=== PATIENT | male | born 1970 | race Hispanic/Latino ===

== ENCOUNTER → 2020-03-26 09:48 | Outpatient (CLI) | payer OTHER, SELFPAY ==
[2020-03-26 11:32] LABS: Bacteria 0 SEEN /hpf (None Seen); Squamous Epithelial Cells - UA 0 SEEN /hpf (0-5); White Blood Cells 0 SEEN /hpf (0-5)
[2020-03-26 11:45] LABS: Color, Urine Yellow (Yellow); Glucose, Dipstick Normal (Normal); Ketone-Dipstick 5 mg/dl (Negative); Leukocyte Esterase-Dipstick 25 /ul (Negative); Nitrite-Dipstick Negative (Negative); Occult Blood-Urine 10 /ul (Negative); Protein-Dipstick 15 mg/dl (Negative); Urine Bilirubin Dipstick Negative (Negative); Urine Clarity Clear (Clear); Urine Urobilinogen 1 mg/dl (Normal)
[2020-03-26 12:05] LABS: Mucous, Urine 2+ /hpf (<or=2+); Red Blood Cells-Urine 0-5 SEEN /hpf (0-5)
[2020-03-27 20:26] LABS: PSA, Free 0.67 ng/mL; PSA, Free % 9.2 % (.); PSA, Total Ultrasensitive 7.3 ng/mL (0.0-4.0)
== END ==
PROVIDERS: PCP Family Medicine; Referring Provider Nurse Practitioner Adult Health; Visit Provider Nurse Practitioner Adult Health
DX: R97.20 Elevated prostate specific antigen [PSA] (principal); R31.29 Other microscopic hematuria
CPT/HCPCS: 36415; 81001; 84153; 84154

== ENCOUNTER → 2020-05-14 13:22 | Outpatient (CLI) | payer OTHER, SELFPAY ==
--- NOTE | 2020-05-14 13:24 | CT_ITS ---
STUDY: CT ABDOMEN AND PELVIS WITH CONTRAST REASON FOR EXAM: Male, 49 years old. PROSTATE CA-NEW DX, ELEVATED PSA RADIATION DOSAGE (If Supplied By Facility): CTDIvol = ( 12.92 ) mGy, DLP = ( 865.33 ) mGycm TECHNIQUE: Transaxial images were obtained from the dome of the diaphragm to the symphysis pubis without oral contrast. IV 100mL Isovue-300 was administered. Sagittal and coronal images were reconstructed. Individualized dose optimization techniques were used for this CT. COMPARISON: None. FINDINGS: The visualized lung bases are unremarkable. The visualized portions of the heart are within normal limits. There is decreased attenuation of the liver consistent with steatosis. Normal gallbladder and extrahepatic biliary system. Normal spleen. Normal pancreas. Normal bilateral adrenal glands. Normal right kidney. Normal left kidney. Normal visualized stomach. Normal small intestine. There are multiple colonic diverticula consistent with diverticulosis. The appendix is visualized and appears normal. There is scattered atherosclerotic calcification of the abdominal aorta, without a demonstrated aneurysm. Normal inferior vena cava. There is borderline retroperitoneal lymphadenopathy with enlarged nodes no greater than 10mm in the short axis diameter. Normal urinary bladder. The prostate measures 4.2 cm x 4.7 cm. There is a small umbilical hernia containing fat. There are mild degenerative changes of the visualized lumbar spine. CT/Abdomen/Pelvis W IV Cont ONLY IMPRESSION: Fatty infiltration of the liver. Sigmoid diverticulosis. No acute abnormality is seen. Electronically Signed: Morales Tobin, at 14:52 EST , Service support ,
[2020-05-14 13:46] LABS: CREATININE FINGERSTICK 0.8 mg/dL (0.70-1.30); EGFR FINGERSTICK > 60.0000 mL/min (>60)
== END ==
PROVIDERS: PCP Family Medicine; Referring Provider Urology; Visit Provider Urology
DX: C61 Malignant neoplasm of prostate (principal); K76.0 Fatty (change of) liver, not elsewhere classified; K57.30 Diverticulosis of large intestine without perforation or abscess without bleeding
CPT/HCPCS: 74177; Q9967

== ENCOUNTER → 2020-05-16 09:00 | Outpatient (CLI) | payer OTHER, SELFPAY ==
--- NOTE | 2020-05-16 09:02 | NM_ITS ---
CLINICAL: 49-year-old male with reported history of carcinoma of the prostate. WHOLE BODY 99m Tc MDP RADIONUCLIDE BONE SCINTIGRAPHY COMPARISON: CT of the abdomen-pelvis report 05/14/2020 FINDINGS: Following the intravenous administration of 25.0 mCi of 99m Tc MDP, whole body bone images reveal: 1. Increased radiopharmaceutical concentration appears evident in the acromioclavicular and sternoclavicular compartments of both shoulders, glenohumeral compartment of the left shoulder, subtly defined in the patellofemoral compartments of both knees. 2. The remaining skeletal structures are scintigraphically unremarkable with normal-appearing renal images and urinary bladder activity identified. Enhanced tracer distribution is defined in the bilateral maxilla, left zygoma most consistent with periostitis. NM/Bone Scan Whole Body IMPRESSION: 1. The increase in tracer distribution identified in the bilateral shoulders, right and left knees is most consistent with degenerative arthritis. 2. There is no definitive scintigraphic evidence of diffuse axial skeletal metastatic disease on the current examination. Electronically Signed: Antoine Patterson DO at 7:45 EST Tel , Service support ,
== END ==
PROVIDERS: PCP Family Medicine; Referring Provider Urology; Visit Provider Urology
DX: C61 Malignant neoplasm of prostate (principal)
CPT/HCPCS: 78306

== ENCOUNTER 2020-06-05 05:39 | Day surgery (SDC) | payer OTHER, SELFPAY ==
[2020-06-05] VITALS (10 sets, daily range): BP systolic 107–144; BP diastolic 62–91; PULSE 76–99; RESP 16–18; TEMP 36.2–37; O2SAT 93–100; BMI 30.4
[2020-06-05] MEDS: Lactated Ringers 1,000 ML 100 ML IV ×2 (07:07→07:10)
--- NOTE | 2020-06-05 07:23 | HP.PCM_ITS ---
Problem List (1) Prostate cancer Status: Acute History of Present Illness Date of Admission: 06/05/20 Chief Complaint: Prostate cancer The patient is a 49 year old male with a history of prostate cancer recently diagnosed. He had [place] seven disease. Negative work-up. PSA was 7.3. Healthy young male is elected undergo radical prostatectomy with bilateral nerve sparing. Past Medical History Allergies No Known Allergies Allergy (Verified 05/28/20 14:05) Home Medications: Ambulatory Orders Medication Instructions Recorded Acetaminophen [Tylenol Extra 500 - 1,000 mg PO Q6H PRN PRN 05/28/20 Strength] Ascorbic Acid [Vitamin C] 500 mg PO DAILY 05/28/20 Cholecalciferol (Vitamin D3) 2,000 unit PO DAILY 05/28/20 [Vitamin D3] Omeprazole 20 mg PO DAILY 05/28/20 Surgical History: no surgical history Smoking Status: Never smoker Review of Systems Constitutional: Denies: Chills, Fever, Weight Change HEENT: Denies: Head Aches, Sinus Congestion, Sinus Drainage Cardiovascular: Denies: Chest Pain, Palpitations Respiratory: Denies: Cough, Shortness of breath at rest, Sputum production Gastrointestinal: Denies: Abdominal Pain, Nausea, Vomiting Genitourinary: Denies: Dysuria Musculoskeletal: Denies: Joint Pain, Joint Tenderness Skin: Denies: Rash, Wounds Neurological: Denies: Numbness, Tingling, Focal weakness Psychiatric: Denies: Anxiety, Depression, Homicidal Ideations, Suicidal Ideations Hematologic/ Lymphatic: Denies: Easy Bruising, Easy Bleeding VTE Information - Inpt Only VTE Present on Admission: No - Physical Exam Vitals/I&O's: Vital Signs Temp Pulse Resp BP Pulse Ox 98.6 F 76 18 140/85 H 98 06/05/20 06:21 06/05/20 06:21 06/05/20 06:21 06/05/20 06:21 06/05/20 06:21 Oxygen Delivery Method Room Air Weight: 91 kg Body Mass Index (BMI) 30.4 General: Alert, Oriented x3, Cooperative HEENT: Atraumatic, PERRLA, EOMI, Normocephalic Neck: Supple, No JVD, Negative Carotid Bruits Lungs: Clear to auscultation, Normal air movement Cardiovascular: Regular rate, No murmurs Abdomen: Bowel Sounds Present, Soft, Non Tender Extremities: No edema, Capillary Refill Less than 3 Seconds Skin: No rashes, No breakdown Musculoskeletal: No Tenderness to Palpation of Joints or Extremities Neurological: Cranial nerves II-XII grossly intact Psych/Mental Status: Normal Affect, Appropriate Microbiology Past 72 Hours 06/03/20 16:15 Interface Orders SARS-CoV-2 Antigen (Rapid) - Final Laboratory Results 06/05/20 06:22: Blood Type Pending, Antibody Screen Pending Current Medications Cefazolin Sodium 2 gm/ Sodium (Chloride) 110 mls @ 150 mls/hr IV PREOP ONE Stop: 06/05/20 07:43 Lactated Ringer's () 1,000 mls @ 100 mls/hr IV .Q10H KAYE Last Admin: 06/05/20 07:07 Dose: 100 mls/hr Documented by: Lactated Ringer's () 1,000 mls @ 100 mls/hr IV .Q10H KAYE Last Admin: 06/05/20 07:10 Dose: 100 mls/hr Documented by: Assessment/Plan All Active Problems Prostate cancer (Acute) 49-year-old male with [place] seven cancer plan to proceed with bilateral nerve sparing and pelvic lymph node dissection.
--- NOTE | 2020-06-05 07:25 | DCINST_ITS ---
Discharge Diet: Light diet - advance as tolerated Discharge Activity: May Not Drive, May not drive while taking narcotic pain medications. Call your doctor if your incision/area has: Continuous Slow Oozing, Sudden Increased Bleeding, Increased Pain/ Swelling Call your doctor if you observe: Fever of 101 or Higher Suture Line Care: Avoid Pulling/Pushing, Avoid Pinching/Bending Instructions: Radical Prostatectomy Allergies/Adverse Reactions: Allergies No Known Allergies Allergy (Verified 05/28/20 14:05) Medications to take at Discharge Acetaminophen [Tylenol Extra Strength] 500 - 1,000 mg PO Q6H PRN PRN 05/28/20 Ascorbic Acid [Vitamin C] 500 mg PO DAILY 05/28/20 Cholecalciferol (Vitamin D3) [Vitamin D3] 2,000 unit PO DAILY 05/28/20 Omeprazole 20 mg PO DAILY 05/28/20 Ciprofloxacin [Cipro] 500 mg PO BID #14 tab 06/05/20 Docusate Sodium [Colace] 100 mg PO BID #20 cap 06/05/20 Hydrocodone/Acetaminophen [[place] 5-325 Tablet] 1 each PO Q4H PRN PRN 7 Days #14 tablet 06/05/20 Orders to be completed after discharge: Type & Screen - PAT ONLY Time Frame: 06/05/20, Facility: [facility], Location: Laboratory Primary Care Physician: Pablo Tejeda DO [Primary Care Provider] - Test Results: Test results from this visit will be discussed in further detail at your follow- up appointment, if applicable. Please Follow Up With: Jake Ortzi MD When: please call to make an appointment. Proposed Discharge Date: 06/06/20
[2020-06-05] MEDS: Cefazolin 2 GM in 0.9% Normal Saline 100 ML IV (07:28)
--- NOTE | 2020-06-05 07:30 | LYMN_PTH ---
PATIENT: CB LOPES LOC: [facility] [place] U[place][id number] AGE/SX: 49/M ROOM: RE06/05/[address]: Dr. Jake Ortiz MD : 1970 BED: DIS: 06/06/2020 SPEC #: [id number] RECD: 06/05/20 13:18 STATUS: JOSHUA RELorri #: [id number] NITA: 06/05/20 07:[address]: Jake Ortiz DEPT: SURGICAL PATHOLOGY RECD BY: Marianne Pablo ENTERED: 06/07/20 07:18 SP TYPE: LYMPH NODE OTHR DR: Dr. Pablo Tejeda, DO Tissues: A - LYMPH NODE BIOPSY B - LYMPH NODE BIOPSY C - Prostate, NOS D - Adipose tissue Procedures: Surgery Specimen Level IV Surgery Specimen Level V Surgery Specimen Level HEADER OPERATION: Lap robotic prostatectomy, lymph node dissection PRE-OP DIAGNOSIS: Prostate cancer TISSUE SUBMITTED: A - Right pelvic lymph node, B - Left pelvic lymph node, C - Prostate, D - Fat over prostate MICROSCOPIC DIAGNOSIS A. Right pelvic lymph node, biopsy: One lymph node, negative for metastatic carcinoma. B. Left pelvic lymph node, biopsy: One lymph node, negative for metastatic carcinoma. C. Prostate, radical prostatectomy: Prostatic adenocarcinoma. See cancer summary in the comment section. D. Fat over prostate: Fragments of mature adipose tissue, negative for carcinoma. SJ:vinicio 06/10/20 COMMENT PROSTATE CANCER (RADICAL) SUMMARY: Procedure: Radical Prostatectomy Prostate Size: Weight: 46.7 gm Size: 4.5 cm transversely, 3 cm anterior-posteriorly and 4 cm craniocaudally Histologic type: Acinar adenocarcinoma Histologic grade: Grade group 5 ([place] score 5+4=9) Tertiary pattern: Grade 3 Tumor Quantitation: Estimated % of prostate involved by tumor: <5% Tumor size: 1.3 x 0.7 cm (measured microscopically), right lobe - 0.2 cm in greatest dimension (measured microscopically), left lobe Extraprostatic Extension: Not identified Urinary Bladder Neck Invasion: Not identified Seminal Vesicle Invasion: Not identified Lymphvascular Invasion: Not identified Perineural Invasion: Not identified Margins: Uninvolved by invasive carcinoma. Treatment Effect: No known presurgical therapy. Regional Lymph Nodes: Number of lymph nodes involved: 0 Number of Lymph Nodes Examined: 2 Additional Pathologic Findings: High-grade prostatic intraepithelial neoplasia (HGPIN). - Focal chronic inflammation. - Benign glandular hyperplasia. Ancillary Studies: Not performed PATHOLOGIC STAGE: pT2 pN0 pMx The above summary is in compliance with [employer] [employer] (CAP) Cancer Protocols Checklist and [place] Joint Committee on Cancer (AJCC), Staging Manual, 8th Ed. C. The tumor involves both right and left lobes predominantly present in the right lobe and present in the apical portion of the right and left lobes. Please make reference to previous specimen ([id number]) done at [facility], prostate, right apex and prostate, left apex with diagnosis of adenocarcinoma. MICROSCOPIC DESCRIPTION Slides are reviewed. GROSS DESCRIPTION A - Received in fixative is one container labeled with the patient's name and designated right pelvic lymph node. The specimen consists of a piece of yellow adipose tissue measuring 3.5 x 2 x 1 cm. One possible lymph node is identified. The specimen is bisected and submitted entirely in two cassettes. B - Received in fixative is one container labeled with the patient's name and designated left pelvic lymph node. The specimen consists of a piece of yellow adipose tissue measuring 2.5 x 1.5 x 0.3 cm. One possible lymph node is identified. The entire specimen is submitted in one cassette. C - Received in fixative is one container labeled with the patient's name and designated prostate. The specimen consists of a radical prostatectomy specimen consisting of prostate and bilateral seminal vesicles weighing 46.7 gm. The prostate measures 4.5 cm transversely, 3 cm anterior-posteriorly and 4 cm craniocaudally. The right seminal vesicle measures 4 x 1.5 x 1 cm and right vas deferens measures 3.5 cm in length and 0.5 cm in diameter. The left seminal vesicle measures 3 x 1 x 0.5 cm and the left vas deferens measures 3 cm in length and 0.5 cm in diameter. The prostate is inked as follows: anterior surface - yellow, posterior surface - black, right lateral surface - blue, left lateral surface - green. The bilateral seminal vesicles and vas deferens are inked as follows: posterior surface - black, anterior surface right seminal vesicle and vas deferens - blue and anterior left seminal vesicle and vas deferens - green. Sections do not reveal any obvious mass lesion. Sewing Machine Operator Floorperson sections are submitted in 21 cassettes as follows: 1 - right seminal vesicle and vas deferens, 2 - left seminal vesicle and vas deferens, 3 - apical/urethral margin, enface, 4 - bladder base margin and basal portion of prostate margin, enface, 5-9 - apical portion prostate, 10-15 - middle portion prostate, 16-21 - basal portion prostate. D - Received in fixative is one container labeled with the patient's name and designated fat over prostate. The specimen consists of multiple pieces of yellow adipose tissue that in aggregate measure 3.5 x 4 x 0.4 cm. No obvious mass lesion is identified. The entire specimen is submitted in two cassettes. / SJ:rg 06/07/20 TC:0 CPT: 83146, 25272 x2, 77281
--- NOTE | 2020-06-05 11:16 | OP.PCM_ITS ---
Problem List (1) Prostate cancer Status: Acute Report of Operation Date of Procedure: 06/05/20 Pre-Operative Diagnosis: Prostate cancer Post-Operative Diagnosis: Same Surgery/Procedure Performed:: Laparoscopic robotic assisted radical prostatectomy. Bilateral pelvic lymph node dissection Description of Surgical Findings:: 49-year-old male was taken back to the operating room #6 at [facility] for surgery for radical prostatectomy with da Afia robot and bilateral lymph node dissection. He has prostate cancer and is elected undergo treatment with surgery understands the risk of the surgery involves possible loss of erections. And possible loss of bladder control and incontinence. After long discussion with the patient the preoperative setting he wishes to proceed with surgery. Understand can be doing lymph node dissection and also bilateral pelvic lymph node dissection and were also can do nerve sparing dissection on both sides. He has Ir[place] 7 prostate cancer and a long life expectancy. Patient was taken back to the operating room after smooth induction of general anesthesia he was placed supine on the table. He underwent Endo take endotracheal intubation and was placed upon the table he was legs were in stirrups the abdomen was shaved prepped and draped in usual sterile fashion as well as the penis and testicles were also prepped and draped. I then placed a 16 Hungarian catheter into the bladder had clear return of yellow urine placed to gravity drainage. I injected above the umbilicus with 10 cc of Marcaine made a 10 cm incision above the umbilicus dissected with a hemostat and then used a Veress needle to introduce the Veress into the peritoneal cavity inflated the peritoneal cavity with CO2 gas and then placed my camera trocar. After the camera trocar was placed this was a 10/12 mm trocar with a balloon inflated balloon with 10 cc of air we then used the camera to place the rest of our trochars we placed the right arm trocar left arm trocar and second left arm trocar and then we placed the suction port and air seal port. Once all the trochars were placed and the air seal port was placed we inflated the abdomen with CO2 gas at a pressure of 15 with high flow. The robot was docked and we started the dissection. I first we mobilized the colon and mobilized it off the lateral sidewall of the colon this allowed us to retract it from the pelvis and then we went underneath the bladder to dissect out the seminal vesicles and vas deferens. Incised the peritoneum over the vas deferens and traced this down to the prostate using only bipolar cauterization and no monopolar scissors during the entire dissection I dissected out the left seminal vesicle and the right seminal vesicle and the right vas deferens and the left vas deferens I then went below the prostate above Denonvilliers' fascia and swept Denonvilliers' fascia below the prostate all the way up to the apex of the prostate stain and that perfect plane between the rectum and the prostate. After that was freed up then we pulled out of the pelvis we then dropped the bladder use the fourth arm to create tension on the bladder and drop the bladder created the P space of Retzius and then put traction on the bladder with the fourth arm I then went laterally to the right side identified the lymph node packet it was the obturator lymph node packet identified the left external iliac vein the lateral pelvic sidewall the obturator nerve and the node of Lamar and then we used clips to dissect them free at the the lymph nodes in the right side the sample was sent off after the lymph node dissection was completed we sent off the samples as a permanent section no the lymph nodes appeared grossly involved. We then went to the left side and identified the left external iliac artery and vein identified the lymph node packet the lateral sidewall and the riveting machine operator automatic nerve again dissected out the lymph node packet off the iliac vein in a meticulous fashion using clips and then these lymph node packet was also sent off as a specimen. I then proceeded with the dissection to the prostate we got above the prostate and we incised the lateral pelvic fascia on the right and left side of the prostate freed up the prostate off the levator muscles all the way up to the apex. On the left side there was a large vein that was draining right into the dorsal vein complex from an aberrant location at the place a clip on this vein I then dissected up to the apex of the prostate incised the puboprostatic ligaments in the right and left side freed up the attachments between the prostate and the dorsal vein complex and then use the fourth arm to grab the dorsal vein complex and then I placed a [id number] stitch in the dorsal vein complex using an 0 Vicryl 9 cm stitch. Once the dorsal vein complex was controlled then we came back to the junction between the bladder and the prostate I dissected using monopolar electrocautery between the bladder and the prostate freeing off the bladder off the prostate followed it down until we came across the urethra the balloon was deflated and the prostate was held on traction upwards and then we dissected posteriorly between the bladder and the prostate until we came to the seminal vesicles and vas deferens out already were dissected out I freed up the edges of the attachments from the bladder and prostate so then the bladder was freed off the prostate then at this point we used the fourth arm to retract the bladder laterally and then we used the fourth arm to retract the prostate laterally we put the prostate on tension laterally identified the neurovascular bundle running on the right side of the prostate we incised the endopelvic fascia over the top of the prostate swept off the prostate all the way down to the neurovascular bundle came underneath the prostate and swept the neurovascular bundles off underneath the prostate is much as possible and then very meticulously came through the pedicle of the prostate in the right side with moderate bipolar lecture cautery and clips until I had taken the pedicle of the prostate and then I swept the neurovascular bundle off the posterior aspect side of the prostate following all the way to the apex this came off intact and no attachments of the prostate as we went all the way up to the apex of the prostate we went then to the left side the cyst and grabbed the prostate and the left side putting lateral traction we incised the endopelvic fascia overlying the prostate and the left side sweeping it down to the edges to identify the neurovascular bundle in the left side we then identified the vas deferens and seminal vesicles and came through with clips in the left pedicle of the prostate after using clips and bipolar after the pedicle was taken then we identified the neurovascular bundle and it was very carefully dissected off the posterior aspect of the left prostate all the way at the apex this came off extremely nicely. There was a complete nerve sparing dissection on both the left and right side with no injury to the neurovascular bundle. I then transected through the dorsal vein complex I had some more bleeding so we used an extra stitch to run a [id number] stitch in the dorsal vein complex to control bleeding from this we then transected between the urethra and the prostate apex and this came out without any violations of the prostate itself. The prostate was then placed in Endo Catch bag we then used FloSeal and Surgicel to obtain hemostasis in the bed of the prostate resection there was a small bleeder in the apex once this was controlled there was no bleeding whatsoever I then performed anastomosis between the bladder neck and the urethral stump this was done over a catheter in a running fashion with double-arm suture starting posteriorly at the 6:00 working away anteriorly to the 12:00 once the anastomosis was complete and then we placed a more FloSeal on top of the anastomosis to control any minor oozing the catheter was flushed and was good flushing the catheter no leakage. We then undocked the robot we extracted the prostate through the supraumbilical incision we closed the umbilical incision and the air seal port which was a 1012 port with a Jaime Stoner stitch patient anesthetic is currently being reversed minimal blood loss during the case but 100 cc. All sponges needles and instruments were accounted for and we closed all the incisions with subcuticular stitches. I was present during the entire case. Type of Anesthesia:: General Drains: 20 fr ayala - Admit VTE Documentation VTE Present on Admission: No VTE Mechan Device Prophylaxis: SCD's
[2020-06-05] MEDS: Bupivacaine Mpf 0.5% 30 ML VIAL (11:18)
[2020-06-05] MEDS: Ketorolac 15 MG/ML Vial IV ×2 (12:05→17:27)
[2020-06-05 12:22] LABS: Hematocrit 42.7 % (40-54); Hemoglobin 14.9 g/dL (13.0-16.5); Mean Corp Hgb Conc 34.9 g/dL (32-36); Mean Corpuscular Hgb 31.1 pg (27.0-32.0); Mean Corpuscular Volume 89.1 fL (80-94); Mean Platelet Vol. 9.8 fl (6.2-12.0); Platelet Count 250 K/mm3 (150-450); RBC Distribution Width CV 11.5 % (11.6-14.6); RBC Distribution Width SD 37.2 fl (35.1-43.9); Red Blood Count 4.79 M/mm3 (4.6-6.2)
[2020-06-05 12:40] LABS: Anion Gap 5 (5-15); BUN 14 mg/dL (7-18); Calcium,Total 8.7 mg/dL (8.5-10.1); Chloride 109 mmol/L (98-107); Creatinine, Serum 1.17 mg/dL (0.70-1.30); EST Glomerular Filtration Rate 70 mL/min (>60); Est Glom Filt Rate - Afr Amer 85 mL/min (>60); Estimated Creatinine Clearance 73.08 ml/min; Glucose 154 mg/dL (74-106); Potassium 4.4 mmol/L (3.5-5.1); Sodium Level 141 mmol/L (136-145)
[2020-06-05] MEDS: 0.45% Normal Saline 1,000 ML 125 ML IV ×2 (13:24→22:56)
[2020-06-05] MEDS: Acetaminophen 500 MG Tablet PO ×2 (13:41→20:09)
--- NOTE | 2020-06-05 14:04 | CHAPLAIN ---
Type of Pastoral Visit ___ Initial Visit ___ Follow-up Visit ___ On-call Visit ___ General Patient Visit ___ Spiritual Assessment ___ Family Conference ___ Bereavement ___ Rapid Response ___ Code Blue _x__ Other (describe below) Pastoral Care Referral From ___ Patient ___ Family ___ Nurse ___ Physician ___ Shelter Supervisor ___ Room Service [place] _x__ Other (describe below) Sacrament/Intervention ___ Active listening ___ Anointing ___ Denominational ___ Bereavement ___ Communion ___ Tiffanie exploration ___ ___ Life review ___ Prayer ___ Reconciliation ___ Sacrament of Sick ___ Supportive presence ___ Wedding ___ Other (describe below) Pastoral Comments patient was out of the room; left a calling card
[2020-06-05] MEDS: Ciprofloxacin 400 MG/200 ML BAG 200 MG IV (15:13)
--- NOTE | 2020-06-05 15:54 | NURSING ---
due to [facility] pharmacy being closed tomorrow, this RN asked pt about DC meds which were sent to [facility] pharmacy. pt reports that his already picked them up, he verified that they have 3 scripts: colace, cipro, and hydrocodone.
[2020-06-05] MEDS: 0.9% Saline Lock 10 ML Syringe IV (17:30)
[2020-06-06] MEDS: 0.9% Saline Lock 10 ML Syringe IV ×3 (00:37→05:32)
[2020-06-06] MEDS: Ketorolac 15 MG/ML Vial IV ×2 (00:37→05:32)
[2020-06-06 00:39] VITALS: BP 106/65; PULSE 85; RESP 16; TEMP 37.2; O2SAT 92
[2020-06-06] MEDS: Morphine 2 MG/ML Syringe IV (01:28)
[2020-06-06] MEDS: Ciprofloxacin 400 MG/200 ML BAG 200 MG IV (03:10)
[2020-06-06] MEDS: Acetaminophen 500 MG Tablet PO (04:33)
[2020-06-06 05:29] VITALS: BP 132/62; PULSE 69; RESP 18; TEMP 36.9; O2SAT 94
[2020-06-06 06:26] LABS: Hematocrit 36.9 % (40-54); Hemoglobin 12.4 g/dL (13.0-16.5); Mean Corp Hgb Conc 33.6 g/dL (32-36); Mean Corpuscular Hgb 30.4 pg (27.0-32.0); Mean Corpuscular Volume 90.4 fL (80-94); Mean Platelet Vol. 9.7 fl (6.2-12.0); Platelet Count 192 K/mm3 (150-450); RBC Distribution Width CV 11.9 % (11.6-14.6); RBC Distribution Width SD 39.2 fl (35.1-43.9); Red Blood Count 4.08 M/mm3 (4.6-6.2); White Blood Count 8.4 K/mm3 (4.4-11.0)
[2020-06-06] MEDS: 0.45% Normal Saline 1,000 ML 125 ML IV (06:53)
[2020-06-06 06:54] LABS: Anion Gap 4 (5-15); BUN 10 mg/dL (7-18); BUN/Creat Ratio 10.1 RATIO (10-20); Calcium,Total 8.1 mg/dL (8.5-10.1); Chloride 108 mmol/L (98-107); Creatinine, Serum 0.99 mg/dL (0.70-1.30); EST Glomerular Filtration Rate 85 mL/min (>60); Est Glom Filt Rate - Afr Amer 103 mL/min (>60); Estimated Creatinine Clearance 86.36 ml/min; Glucose 105 mg/dL (74-106); Potassium 3.5 mmol/L (3.5-5.1); Sodium Level 140 mmol/L (136-145)
[2020-06-06] MEDS: Pantoprazole Sodium 20 MG Tablet PO (09:48)
[2020-06-06] MEDS: oxyCODONE 5 MG Tablet PO (09:48)
[2020-06-06] MEDS: Docusate Sodium 100 MG Capsule 200 MG PO (09:49)
[2020-06-06 09:50] VITALS: BP 128/76; PULSE 86; RESP 18; TEMP 36.7; O2SAT 94
== END 2020-06-06 11:42 | disposition home or self-care (01) ==
LOC: SDC 05:44 → AC 05:45 → MS3 06-07 06:40
PROVIDERS: PCP Family Medicine; Referring Provider Urology; Visit Provider Urology
PROC: 0VT04ZZ Resection of Prostate, Percutaneous Endoscopic Approach (ICD-10-PCS; CPT 55866; principal; 2020-06-05 07:10)
DX: C61 Malignant neoplasm of prostate (principal); Z20.828 Contact with and (suspected) exposure to other viral communicable diseases; G47.30 Sleep apnea, unspecified
CPT/HCPCS: 00865; 55866; 36415; 80048; 85027; 86850; 86900; 86901; 87426; 88304; 88305; 88307; 88309; 94762; 99251; J7120; A4216; G0463; J0744; J2405

== ENCOUNTER → 2020-07-26 11:27 | Outpatient (CLI) | payer OTHER, SELFPAY ==
[2020-06-05 12:59] VITALS: BMI 30.4
[2020-07-26 12:26] LABS: PSA,Total- Diagnostic 0.01 ng/mL (0.0-4.0)
== END ==
PROVIDERS: PCP Family Medicine; Referring Provider Urology; Visit Provider Urology
DX: C61 Malignant neoplasm of prostate (principal)
CPT/HCPCS: 36415; 84153

== ENCOUNTER → 2020-10-25 09:17 | Outpatient (CLI) | payer BC, SELFPAY ==
[2020-06-05 12:59] VITALS: BMI 30.4
[2020-10-25 10:42] LABS: PSA,Total- Diagnostic < 0.01 ng/mL (0.0-4.0)
== END ==
PROVIDERS: PCP Family Medicine; Referring Provider Urology; Visit Provider Urology
DX: C61 Malignant neoplasm of prostate (principal)
CPT/HCPCS: 36415; 84153

== ENCOUNTER → 2020-10-29 10:38 | Outpatient (CLI) | payer BC, SELFPAY ==
[2020-06-05 12:59] VITALS: BMI 30.4
== END ==
PROVIDERS: PCP Family Medicine; Referring Provider Urology; Visit Provider Urology
DX: C61 Malignant neoplasm of prostate (principal)
CPT/HCPCS: 36415; 84403

== ENCOUNTER → 2021-02-03 11:09 | Outpatient (CLI) | payer BC, SELFPAY ==
[2020-06-05 12:59] VITALS: BMI 30.4
[2021-02-03 13:06] LABS: PSA,Total- Diagnostic 0.01 ng/mL (0.0-4.0)
== END ==
PROVIDERS: PCP Family Medicine; Referring Provider Urology; Visit Provider Urology
DX: C61 Malignant neoplasm of prostate (principal)
CPT/HCPCS: 36415; 84153

== ENCOUNTER → 2021-04-30 08:56 | Outpatient (CLI) | payer BC, SELFPAY ==
[2021-04-30 10:05] LABS: PSA,Total- Diagnostic < 0.01 ng/mL (0.0-4.0)
== END ==
PROVIDERS: PCP Family Medicine; Referring Provider Urology; Visit Provider Urology
DX: C61 Malignant neoplasm of prostate (principal)
CPT/HCPCS: 36415; 84153

== ENCOUNTER 2021-10-08 10:08 | Outpatient (CLI) | payer OTHER, SELFPAY ==
[2021-10-08 11:40] LABS: PSA,Total- Diagnostic < 0.01 ng/mL (0.0-4.0)
[2021-10-12 15:07] LABS: Testosterone, Free 9.13 ng/dL (5.00-21.00)
[2021-10-13 13:25] LABS: Testosterone, % Free 3.54 % (1.50-4.20); Testosterone, Total 258 ng/dL (264-916)
== END 2021-10-08 23:59 | disposition home or self-care (01) ==
PROVIDERS: PCP Family Medicine; Referring Provider Urology; Visit Provider Urology
DX: C61 Malignant neoplasm of prostate (principal)
CPT/HCPCS: 36415; 84153; 84402; 84403

== ENCOUNTER → 2022-04-13 | Outpatient (CLI) | payer OTHER, SELFPAY ==
[2022-04-13 14:09] LABS: PSA,Total- Diagnostic < 0.01 ng/mL (0.0-4.0)
== END | disposition home or self-care (01) ==
LOC: LAB 13:18
PROVIDERS: PCP Family Medicine; Referring Provider Urology; Visit Provider Urology
DX: C61 Malignant neoplasm of prostate (principal)
CPT/HCPCS: 36415; 84153; 84403

== ENCOUNTER → 2022-09-16 | Outpatient (CLI) | payer OTHER, SELFPAY ==
[2022-09-16 10:49] LABS: Cholesterol 226 mg/dL (200); High Density Lipoprotein 57 mg/dL; Triglycerides 92 mg/dL; Very Low Density Lipoprotein 18 mg/dL (5-40)
== END | disposition home or self-care (01) ==
LOC: LAB 09:57
PROVIDERS: PCP Family Medicine; Referring Provider Family Medicine; Visit Provider Family Medicine
DX: E78.00 Pure hypercholesterolemia, unspecified (principal)
CPT/HCPCS: 36415; 80061

== ENCOUNTER → 2022-10-12 | Outpatient (CLI) | payer OTHER, SELFPAY ==
[2022-10-12 15:47] LABS: PSA,Total- Diagnostic 0.02 ng/mL (0.0-4.0)
[2022-10-20 14:37] LABS: Testosterone Free 8.7 pg/mL (7.2-24.0)
== END | disposition home or self-care (01) ==
PROVIDERS: PCP Family Medicine; Referring Provider Registered Nurse; Visit Provider Registered Nurse
DX: E29.1 Testicular hypofunction (principal); C61 Malignant neoplasm of prostate
CPT/HCPCS: 36415; 84153; 84402; 84403

== ENCOUNTER → 2022-11-06 | Outpatient (CLI) | payer OTHER, SELFPAY ==
--- NOTE | 2022-11-06 07:58 | US_ITS ---
STUDY: ABDOMINAL ULTRASOUND - RIGHT UPPER QUADRANT REASON FOR VISIT: Male, 52 years old FATTY LIVER TECHNIQUE: Ultrasound evaluation of the right upper quadrant was performed with real-time and static kwon-scale imaging. TECHNICAL QUALITY: Adequate. COMPARISON: None. FINDINGS: Liver: The liver measures 15.9 cm. There is increased echogenicity consistent with fatty infiltration. The bile ducts are within normal limits. There is hepatic color flow. The direction of portal flow is hepatopetal. There is no demonstrated mass lesion. Gallbladder: Normal distended gallbladder. The gallbladder wall measures 1.6 mm. There is a negative sonographic Munoz''s sign. There is no pericholecystic fluid. There are no gallstones. Common Bile Duct (C.B.D.): The common bile duct measures 3.5 mm. Pancreas: Normal size of the head, body and tail of the pancreas. There is normal echogenicity of the pancreas. There is no demonstrated pancreatic mass or cyst. Right Kidney: Normal size of the right kidney. The right kidney measures 12.2 cm x 5.6 cm x 5.9 cm. Normal renal cortex. The right cortex measures 1.4 cm. There is no demonstrated renal mass or cyst. There is no right hydronephrosis. US/Abdomen Limited IMPRESSION: Fatty infiltration of the liver. Electronically Signed: Morales Tobin MD at 15:24 EDT ,
== END | disposition home or self-care (01) ==
LOC: US 07:58
PROVIDERS: PCP Family Medicine; Referring Provider Family Medicine; Visit Provider Family Medicine
DX: K76.0 Fatty (change of) liver, not elsewhere classified (principal)
CPT/HCPCS: 76705